=== PATIENT | female | born 1980 | race Caucasian/White ===

== ENCOUNTER → 2021-12-19 08:02 | Outpatient (CLI) | payer OTHER, SELFPAY ==
--- NOTE | ~2021-12-19 | MR_ITS ---
EXAMINATION: MR lumbar spine wo con DATE: 12/19/2021 08:55 INDICATION: Depression of weakness and radiculopathy. TECHNIQUE: Magnetic resonance imaging (MRI) of the lumbar spine was performed without intravenous con trast. Sequences included sagittal T2-weighted FSE, sagittal T2-weighted FS FSE, sagittal T1-weighted FSE, and axial T2-weighted FSE. COMPARISON: None FINDINGS: Alignment is normal. Vertebral body heights are normal. Diffuse red marrow reexpansion throughout lum bar spine which can be seen with anemia or chronic hypoxic states including smoking. Mild disc desicc ation and minimal disc height loss at L3-L4, L4-L5 and L5-S1. Annular fissures at each of these level s. The conus medullaris terminates at L1-L2. There is normal signal in the caudal spinal cord. Couple subcentimeter T2 hyperintense cysts in the left kidney. Paravertebral soft tissues are unremarkable. The following disc levels are specifically discussed: T12-L1: The disc does not extend beyond the endplate margin. There is mild bilateral facet joint oste oarthritis. There is no neural foraminal stenosis. There is no central canal stenosis. L1-L2: The disc does not extend beyond the endplate margin. There is mild bilateral facet joint osteo arthritis. There is no neural foraminal stenosis. There is no central canal stenosis. L2-L3: The disc does not extend beyond the endplate margin. There is mild right and minimal left face t joint osteoarthritis. There is no neural foraminal stenosis. There is no central canal stenosis. L3-L4: Disc is mildly bulging. There is mild bilateral facet joint osteoarthritis. There is mild bila teral neural foraminal stenosis. There is mild central canal stenosis. L4-L5: Moderate diffuse disc bulge with superimposed annular fissure and small central to right subar ticular zone disc extrusion with disc material extending up to 3 mm cephalad to the level of the infe rior endplate of L4. There is mild bilateral facet joint osteoarthritis. There is mild bilateral neur al foraminal stenosis. There is mild central canal stenosis. L5-S1: Disc is mildly bulging with superimposed annular fissure and small paracentral to subarticular zone disc extrusion with disc material extending 3 mm cephalad to the level of the inferior endplate of L5. There is mild bilateral facet joint osteoarthritis. There is mild right and mild to moderate left neural foraminal stenosis. There is no central canal stenosis. IMPRESSION: 1. Minimal upper and mild lower lumbar spondylosis. Reviewed, dictated and finalized at location A.
--- NOTE | ~2021-12-19 | MR_ITS ---
EXAMINATION: MR cervical spine wo con DATE: 12/19/2021 08:52 INDICATION: Progression of weakness. Radiculopathy. TECHNIQUE: Magnetic resonance imaging (MRI) of the cervical spine was performed without intravenous c ontrast. Sequences included sagittal T2-weighted FSE, sagittal T2-weighted FS FSE, sagittal T1-weight ed FSE, axial MERGE and axial T2-weighted FSE. COMPARISON: Cervical spine CT dated 09/23/2012 FINDINGS: Bone alignment is normal. Vertebral body heights are normal. Bone marrow signal intensity is normal . Intervertebral disc heights are normal. Cord signal intensity is normal. Visualized cervical soft t issues are unremarkable. The following disc levels are specifically discussed: C2-C3: The disc does not extend beyond the endplate margin. There is mild left uncovertebral joint os teoarthritis. There is mild bilateral facet joint osteoarthritis. There is no neural foraminal stenos is. There is no central canal stenosis. C3-C4: The disc does not extend beyond the endplate margin. There is mild bilateral uncovertebral roland nt osteoarthritis. There is mild right and moderate left facet joint osteoarthritis. There is no neur al foraminal stenosis. There is no central canal stenosis. C4-C5: The disc does not extend beyond the endplate margin. There is mild bilateral uncovertebral roland nt osteoarthritis. There is mild right and moderate left facet joint osteoarthritis. There is no neur al foraminal stenosis. There is no central canal stenosis. C5-C6: Disc is mildly bulging. There is moderate bilateral uncovertebral joint osteoarthritis. There is mild bilateral facet joint osteoarthritis. There is mild bilateral neural foraminal stenosis. Ther e is no central canal stenosis. C6-C7: The disc does not extend beyond the endplate margin. There is mild bilateral uncovertebral roland nt osteoarthritis. There is mild bilateral facet joint osteoarthritis. There is no neural foraminal s tenosis. There is no central canal stenosis. C7-T1: The disc does not extend beyond the endplate margin. There is no uncovertebral joint osteoarth ritis. There is mild bilateral facet joint osteoarthritis. There is no neural foraminal stenosis. The re is no central canal stenosis. IMPRESSION: 1. Minimal to mild cervical spondylosis. Reviewed, dictated and finalized at location A.
== END ==
PROVIDERS: PCP Internal Medicine; Visit Provider Physical Medicine & Rehabilitation Pain Medicine
DX: M47.22 Other spondylosis with radiculopathy, cervical region (principal); M47.27 Other spondylosis with radiculopathy, lumbosacral region
CPT/HCPCS: 72141; 72148

== ENCOUNTER 2022-04-21 08:02 | Outpatient (CLI) | payer OTHER, SELFPAY ==
--- NOTE | ~2022-04-21 | XR_ITS ---
EXAMINATION: XR shoulder LT min 2V DATE: 04/21/2022 08:51 INDICATION: Left shoulder instability. TECHNIQUE: 4 views of left shoulder were obtained. COMPARISON: None. FINDINGS: Bone alignment is normal. No fracture. Joint spaces are well maintained. IMPRESSION: 1. Normal left shoulder. Reviewed, dictated and finalized at location A. GER DIALYSIS IMPRESSION: 1. Normal left shoulder.
--- NOTE | ~2022-04-21 | XR_ITS ---
EXAMINATION: XR elbow LT min 3V DATE: 04/21/2022 08:50 INDICATION: Left elbow instability and pain. TECHNIQUE: 4 views of left elbow were obtained. COMPARISON: None. FINDINGS: Bone alignment is normal. No fracture. Joint spaces are well maintained. There is no elbow joint effusion. IMPRESSION: 1. No fracture. Reviewed, dictated and finalized at location A. [employer] SERVICES TEAM LEADER IMPRESSION: 1. No fracture.
--- NOTE | ~2022-04-21 | XR_ITS ---
EXAMINATION: XR shoulder RT min 2V DATE: 04/21/2022 08:51 INDICATION: Right shoulder instability. TECHNIQUE: 4 views of right shoulder were obtained. COMPARISON: None. FINDINGS: Bone alignment is normal. No fracture. Joint spaces are well maintained. IMPRESSION: 1. Normal right shoulder. Reviewed, dictated and finalized at location A. 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 Normal right shoulder.
--- NOTE | ~2022-04-21 | XR_ITS ---
EXAMINATION: XR elbow RT min 3V DATE: 04/21/2022 08:51 INDICATION: Right elbow instability and pain. TECHNIQUE: 4 views of right elbow were obtained. COMPARISON: None. FINDINGS: Bone alignment is normal. No fracture. Joint spaces are well maintained. There is no elbow joint effusion. IMPRESSION: 1. Normal right elbow. Reviewed, dictated and finalized at location A. [employer] DESIGNER IMPRESSION: 1. Normal right elbow.
== END 2022-04-21 08:03 | disposition home or self-care (01) ==
PROVIDERS: PCP Internal Medicine; Visit Provider Physical Medicine & Rehabilitation Pain Medicine
DX: M25.322 Other instability, left elbow (principal); M25.321 Other instability, right elbow; M25.312 Other instability, left shoulder; M25.311 Other instability, right shoulder
CPT/HCPCS: 73030; 73080